=== PATIENT | female | born 1990 ===

== ENCOUNTER → 2018-09-24 | Outpatient (CLI) | payer MEDICARE, MEDICAID ==
[~2018-09-24] MED LIST: CETI10CA8 PO; CHOL10005 PO; CIPR-344 PO; FAMO20TA28 PO; FLUO-177 PO; HYDR-653 PO; IBUP600T22 PO; PHEN200T32 PO; TRAZ50TA34 PO; [UNRECOGNIZED DRUG - CODE] IY
[2018-09-24 11:05] LABS: PLATELET COUNT, AUTOMATED 262 K/uL (150-450)
== END ==
LOC: LAB 10:43
PROVIDERS: ATTEND Internal Medicine
DX: R10.9 Unspecified abdominal pain (principal); R63.5 Abnormal weight gain; F32.9 Major depressive disorder, single episode, unspecified
CPT/HCPCS: 36415; 81001; 82040; 82150; 82247; 82310; 82374; 82435; 82565; 82947; 83690; 84075; 84132; 84155; 84295; 84439; 84443; 84450; 84460; 84520; 85025

== ENCOUNTER → 2018-12-17 | Outpatient (CLI) | payer MEDICARE, MEDICAID ==
[~2018-12-17] MED LIST changes: +PANT40TA65 PO; -TRAZ50TA34 PO; +TRAZ50TA52 PO
--- NOTE | 2018-12-17 16:39 | EKG ---
FACILITY: [facility] [place] PATIENT NAME: MAGNO JARVIS : [id number] MR: [id number]: [id number] EXAM DATE: ORDERING PHYSICIAN: ELMER SIU TECHNOLOGIST: JACKELINE Test Reason : CHEST PAIN Blood Pressure : / mmHG Vent. Rate : 066 BPM Atrial Rate : 066 BPM P-R Int : 150 ms QRS Dur : 086 ms QT Int : 432 ms P-R-T Axes : 038 046 044 degrees QTc Int : 452 ms Normal sinus rhythm Normal ECG No previous ECGs available Confirmed by ELMER SIU ([id number]) on 12/17/2018 4:36:19 PM Referred By: DOROTHY Confirmed By:ELMER SIU
== END ==
LOC: RESP 14:04
PROVIDERS: ATTEND Internal Medicine
DX: R07.9 Chest pain, unspecified (principal)